=== PATIENT | female | born 1985 | race Caucasian/White ===

== ENCOUNTER 2019-10-23 20:31 | Emergency (ER) | payer BC ==
[2019-10-23] MEDS ORDERED: HYDROmorphone 0.5 MG/0.5 ML SYRINGE IV ONE (21:38)
[2019-10-23] MEDS ORDERED: Ondansetron 4 mg VIAL 2 MG/ML 2 ml VIAL IV ONE (21:45)
[2019-10-23] MEDS ORDERED: O ndansetron ODT 4MG 5TAB PRPK 4 MG PAK PO ONE (22:18)
[2019-10-23 22:54] VITALS: BP 149/102
== END 2019-10-23 22:47 | disposition home or self-care (01) ==
LOC: ED 20:31

== ENCOUNTER 2019-10-26 09:49 | Day surgery (SDC) | payer BC ==
[~2019-10-26 09:49] MED LIST: Buffered Lidocaine 1% SYRIN 1 ml INTRADERM ONE; Lactated Ringers 1000 ml BAG 1,000 ML IV SCH; ceFAZolin 2 GM PREMIX in ORs 2 GM/50 ML BAG ONE
[2019-10-26] MEDS ORDERED: Midazolam 2 mg/2 ml VIAL 1 mg/ml 2 ml VIAL (2 mg) ONE (09:52)
[2019-10-26] MEDS ORDERED: Dexmedetomidine 200 mcg/2 ml 2 ml VIAL (200 mcg) ONE (09:52)
[2019-10-26] MEDS ORDERED: Propofol 10 MG/ML 20 ML BTL ONE ×2 (09:52→11:48)
[2019-10-26] MEDS ORDERED: Lidocaine 2% PF 5 ML VIAL ONE ×2 (09:55→13:01)
[2019-10-26] MEDS ORDERED: ROPIVACAINE 5 MG/ML 30 ML BTL (0.5%) ONE (10:40)
[2019-10-26] MEDS ORDERED: Dexamethasone IV 4 MG/ML VIAL 1 ml VIAL ONE (11:48)
[2019-10-26] MEDS ORDERED: Labetalol IV 5 MG/ML 20 ml VIAL ONE (11:48)
[2019-10-26] MEDS ORDERED: Succinylcholine 200 mg VIAL 20 mg/ml 10 ml VIAL (200 mg) ONE (11:50)
[2019-10-26] MEDS ORDERED: Albuterol 2.5mg/3 ml (0.083%) NEB.SOLN INH ONE (12:43)
[2019-10-26] MEDS ORDERED: Ketamine HCL 50 mg/ml 10 ml VIAL (500 MG) ONE (12:44)
[2019-10-26] MEDS ORDERED: Albuterol HFA INHALER 8 gm MDI INH PRN (12:52)
[2019-10-26] MEDS ORDERED: hydrALAZINE 20 mg/ml 1 ML Vial IV ONE (13:06)
[2019-10-26 14:33] VITALS: BP 145/104
== END 2019-10-26 14:34 | disposition home or self-care (01) ==
LOC: OR 09:49
PROVIDERS: ATTEND Orthopaedic Surgery

== ENCOUNTER 2019-10-26 16:58 | Emergency (ER) | payer BC ==
[2019-10-26 17:38] LABS: Urine Appearance Clear; Urine Bilirubin Negative (Negative); Urine Blood Negative (Negative); Urine Color Straw; Urine Glucose Negative (Negative); Urine Ketones 1+ (Negative); Urine Nitrite Negative (Negative); Urine Protein Negative (Negative); Urine Specific Gravity 1.009 (1.010-1.030); Urine Urobilinogen Negative (Negative)
[2019-10-26 19:52] VITALS: BP 162/106
== END 2019-10-26 19:45 | disposition home or self-care (01) ==
LOC: ED 16:58